=== PATIENT | female | born 1990 | race Caucasian/White ===

== ENCOUNTER 2017-07-04 20:19 | Emergency (ER) | payer BC ==
--- NOTE | 2017-07-04 20:57 | ERPHSYRPT ---
- History of Present Illness Time Seen by Provider: 07/04/17 20:45 Source: patient Exam Limitations: clinical condition Patient Subjective Stated Complaint: urinary symptoms began today, nausea, increased abd and back pain, no fevers or vomiting Triage Nursing Assessment: abd and back pain, no fevers or vomiting, c/o nausea and dark tinged urine Physician History: PATIENT COMPLAINS OF ACUTE ONSET OF DYSURIA, FREQUENCY, URGENCY, DYSURIA AND LOWER BACK PAIN Timing/Duration: today Activites at Onset: none Quality: burning, cramping Onset Location: suprapubic Pain Radiation: none Severity of Pain-Max: mild Severity of Pain-Current: mild Prior abdominal problems: UTI Sexual intercourse history: non-contributory Modifying Factors: Improves With: nothing Associated Symptoms: dysuria, polyuria, urinary frequency, other (URGENCY) Allergies/Adverse Reactions: Penicillins Allergy (Verified 08/05/15 16:14) Home Medications: Omeprazole 20 mg PO DAILY 09/27/15 [History] Hx Tetanus, Diphtheria Vaccination/Date Given: Yes Hx Influenza Vaccination/Date Given: Yes Hx Pneumococcal Vaccination/Date Given: No - Review of Systems Constitutional: No Fever, No Chills Eyes: No Symptoms Ears, Nose, & Throat: No Symptoms Respiratory: No Symptoms, No Cough, No Dyspnea Cardiac: No Symptoms, No Chest Pain, No Edema, No Syncope Abdominal/Gastrointestinal: No Abdominal Pain, No Nausea, No Vomiting, No Diarrhea Genitourinary Symptoms: Frequency, Incontinence, Urgency, No Dysuria Musculoskeletal: No Symptoms, No Back Pain, No Neck Pain Skin: No Rash Neurological: No Dizziness, No Focal Weakness, No Sensory Changes Psychological: No Symptoms Endocrine: No Symptoms All Other Systems: Reviewed and Negative - Past Medical History Pertinent Past Medical History: Yes Neurological History: No Pertinent History ENT History: No Pertinent History Cardiac History: No Pertinent History Respiratory History: No Pertinent History Endocrine Medical History: No Pertinent History Musculoskeletal History: No Pertinent History GI Medical History: GERD History: No Pertinent History Psycho-Social History: No Pertinent History Female Reproductive Disorders: No Pertinent History - Past Surgical History Past Surgical History: Yes Neuro Surgical History: No Pertinent History Cardiac: No Pertinent History Respiratory: No Pertinent History Gastrointestinal: Cholecystectomy Genitourinary: No Pertinent History Musculoskeletal: No Pertinent History Female Surgical History: Section Other Surgical History: tonsilectomy - Social History Smoking Status: Current every day smoker How long have you smoked: 8 Exposure to second hand smoke: No Drug Use: none Patient Lives Alone: No - Female History Hx Last Menstrual Period: 06/29/2017 Hx Now: No - Nursing Vital Signs Nursing Vital Signs: Initial Vital Signs Temperature 98.9 F 07/04/17 20:33 Pulse Rate 64 07/04/17 20:33 Respiratory Rate 18 07/04/17 20:33 Blood Pressure 118/69 07/04/17 20:33 O2 Sat by Pulse Oximetry 97 07/04/17 20:33 Pain Scale Pain Intensity 7 - Physical Exam General Appearance: no apparent distress, alert Eye Exam: PERRL/EOMI, eyes nml inspection Ears, Nose, Throat Exam: normal ENT inspection, TMs normal, pharynx normal, moist mucous membranes Neck Exam: normal inspection, non-tender, supple, full range of motion Respiratory Exam: normal breath sounds, lungs clear, No respiratory distress Cardiovascular Exam: regular rate/rhythm, normal heart sounds, normal peripheral pulses Gastrointestinal/Abdomen Exam: soft, normal bowel sounds, other (MINIMAL SUPRAPUBIC TENDERNESS), No tenderness, No mass Back Exam: normal inspection, normal range of motion, No CVA tenderness, No vertebral tenderness Extremity Exam: normal inspection, normal range of motion, pelvis stable Neurologic Exam: alert, oriented x 3, cooperative, mud boss II-XII nml as tested, normal mood/affect, sensation nml, No motor deficits Skin Exam: normal color, warm, dry Lymphatic Exam: No adenopathy SpO2 Interpretation: normal SpO2: 97 Oxygen Delivery: Room Air Ordered Tests: Active Orders 24 hr Category Date Time Status HCG,QUALITATIVE URINE Stat Lab 07/04/17 21:00 Completed Urine Triage Profile Stat Lab 07/04/17 21:00 Completed Urine,Microscopic Stat Lab 07/04/17 21:00 Completed Medication Summary Generic Name Dose Route Start Last Admin Trade Name Freq PRN Reason Stop Dose Admin Phenazopyridine HCl 200 mg 07/05/17 22:02 Pyridium 200 Mg PO 07/05/17 22:03 STAT ONE Discontinued Medications Generic Name Dose Route Start Last Admin Trade Name Freq PRN Reason Stop Dose Admin Trimethoprim/Sulfamethoxazole 1 tab 07/04/17 22:01 Bactrim Ds Tablet PO 07/04/17 22:02 STAT STA Lab/Rad Data: Laboratory Results 07/04/17 07/04/17 07/04/17 Range/Units 21:00 21:00 21:00 Urine Microscopic RBC 0-2 (0-2) /HPF Urine Microscopic WBC 10-15 (0-5) /HPF Ur Epithelial Cells MODERATE (FEW) /HPF Urine Bacteria MODERATE (NEGATIVE) /HPF Urine HCG, Qual NEGATIVE (Negative) Urine Opiates Level NEG. (NEGATIVE) Ur Methadone NEG. (NEGATIVE) Urine Barbiturates NEG. (NEGATIVE) Ur Phencyclidine (PCP) NEG. (NEGATIVE) Urine Amphetamine NEG. (NEGATIVE) U Benzodiazepine Level NEG. (NEGATIVE) Urine Cocaine NEG. (NEGATIVE) Urine Marijuana (THC) POS. (NEGATIVE) - Progress Progress Note: 07/04/17 22:05 ADMINISTERED BACTRIM DS, PYRIDIUM 200MG ORALLY Counseled pt/family regarding: lab results, diagnosis, need for follow-up - Departure Time of Disposition: 22:20 Departure Disposition: Home Clinical Impression: URINARY TRACT INFECTION Condition: Stable Critical Care Time: No Referrals: EDUARDO MADISON [Primary Care Provider] - Additional Instructions: DRINK PLENTY OF FLUIDS. ANTIBIOTIC BACTRIM DS TWICE DAILY FOR 10 DAYS. PYRIDIUM 100MG AFTER MEALS FOR 2 DAYS. CONSULT YOUR PRIMARY CARE PROVIDER FOR FOLLOWUP IN 1 WEEK. Prescriptions: Phenazopyridine HCl [Pyridium] 100 mg PO AC #6 tablet Smz/Tmp Ds Tablet [Bactrim Ds Tablet] 1 udtab PO BID #20 tablet
[2017-07-04 21:17] VITALS: BP 114/57; PULSE 62
[2017-07-04 21:21] LABS: Amphetamine,Urine NEG. (NEGATIVE); Barbiturate,Urine NEG. (NEGATIVE); Benzodiazepine,Urine NEG. (NEGATIVE); Cocaine,Urine NEG. (NEGATIVE); Methadone,Urine NEG. (NEGATIVE); Opiate,Urine NEG. (NEGATIVE); PCP,Urine NEG. (NEGATIVE); THC,Urine POS. (NEGATIVE)
[2017-07-04 21:56] LABS: Bacteria MODERATE /HPF (NEGATIVE); Epithelial Cells MODERATE /HPF (FEW)
[2017-07-04] MEDS ORDERED: BACTRIM DS TABLET PO STA (22:01)
[2017-07-04 22:08] VITALS: O2SAT 97
[2017-07-04] MEDS ORDERED: BACTRIM DS TABLET PO ONE (22:09)
[2017-07-04] MEDS ORDERED: PYRIDIUM 200 MG ONE (22:10)
[2017-07-05] MEDS ORDERED: PYRIDIUM 200 MG PO ONE (22:02)
== END 2017-07-04 22:20 | disposition home or self-care (01) ==
LOC: ED 20:19
DX: N39.0 Urinary tract infection, site not specified (principal); R11.0 Nausea; R30.0 Dysuria; M54.5 Low back pain; R35.8 Other polyuria
CPT/HCPCS: 80307; 84703; 99284; A9270-GY

== ENCOUNTER 2018-10-13 06:02 | Day surgery (SDC) | payer BC ==
[2018-10-13] MEDS ORDERED: DIPRIVAN 200 MG/20 ML IV ONE (06:03)
[2018-10-13] MEDS ORDERED: Lactated Ringers 1,000 ML IV SCH (06:30)
[2018-10-13 06:40] LABS: Amphetamine,Urine NEGATIVE (NEGATIVE); Barbiturate,Urine NEGATIVE (NEGATIVE); Benzodiazepine,Urine NEGATIVE (NEGATIVE); Cocaine,Urine NEGATIVE (NEGATIVE); Methadone,Urine NEGATIVE (NEGATIVE); Opiate,Urine NEGATIVE (NEGATIVE); PCP,Urine NEGATIVE (NEGATIVE); THC,Urine POSITIVE (NEGATIVE)
[2018-10-13 09:08] VITALS: PULSE 78; O2SAT 96
[2018-10-13 09:24] VITALS: BP 108/50
--- NOTE | 2018-10-13 09:29 | OP ---
SURGERY DATE/TIME: 10/13/2018 0744 PREOPERATIVE DIAGNOSIS: Persistent vomiting. POSTOPERATIVE DIAGNOSES: 1) Hiatal hernia. 2) Moderate gastritis. PROCEDURE: Esophagogastroduodenoscopy with cold forceps biopsy. SURGEON: Dr. Banks. ANESTHESIA: Anesthesia given by the anesthesia department. HISTORY: The patient is a 27 year-old white female who reports she has had chronic gastroesophageal reflux disease for which she takes Prilosec. She previously had endoscopy eight years ago for severe gastritis. Since that time the patient has persisted to take the omeprazole. Over the couple of weeks she has had episodes of persistent vomiting despite her medications. She has taken no new medication however to help the problem in the interim. The patient was felt the need to have endoscopic evaluation. She was appraised of the risks of the procedure including the risk of perforation, phlebitis, untoward reaction to medication, bleeding, missed lesions, sore throat and vocal cord injury. The patient verbalized her understanding and desired to have the procedure performed. DESCRIPTION OF PROCEDURE: The patient was given the medications by the anesthesia department. She had continuous pulse oximetry, ECG monitoring, intermittent blood pressure monitoring and tidal CO2 monitoring during the examination. She was placed in the left lateral decubitus position. A bite block was placed and the flexible Olympus gastroscope was used to intubate the oropharynx. A view of the larynx was obtained and was normal. The scope was easily passed in the esophagus which appeared to be normal throughout its length. There was however appearance of hiatal hernia as we reached the gastroesophageal junction. The stomach was insufflated with air. There was noted to be a fair amount of thick liquidy material still left in the stomach which was suctioned completely as we could. The stomach was re-insufflated. The scope was passed along the greater curvature of the stomach to the antrum. There appeared to be some patchy areas of erythema throughout the stomach. The pylorus encountered and intubated. The duodenum inspected and found to be normal. The scope withdrawn towards the stomach again. Retroflex view obtained of the lesser curvature, fundus and cardia regions of the stomach and these confirmed the presence of hiatal hernia. The scope was then directed towards the gastric antrum and biopsies were obtained to rule out the presence of Helicobacter pylori-type organisms and to confirm the presence of gastritis. The scope was then removed from the patient who tolerated the procedure well and was sent back to the recovery room in good condition.
== END 2018-10-13 09:25 | disposition home or self-care (01) ==
LOC: SDC 06:02
PROVIDERS: ATTEND Family Medicine
DX: K44.9 Diaphragmatic hernia without obstruction or gangrene (principal); K29.70 Gastritis, unspecified, without bleeding; R11.10 Vomiting, unspecified; R10.13 Epigastric pain; Z79.899 Other long term (current) drug therapy
CPT/HCPCS: 80307; 88305; J2704